=== PATIENT | male | born 1950 | race Two or more races ===

== ENCOUNTER 2025-01-27 11:02 | Emergency (ER) | payer OTHER ==
[~2025-01-27] VITALS: Ht 172.7 cm; Wt 97.5 kg
[2025-01-27] MEDS ORDERED: TYLENOL 120MG120 MG PO (11:23)
[2025-01-27] MEDS ORDERED: AMLODIPINE-OLM1 EAC2 PO (11:24)
[2025-01-27] MEDS ORDERED: TENORMIN50 M1 (11:24)
[2025-01-27] MEDS ORDERED: VASOTEC20 MG PO (11:24)
[2025-01-27] MEDS ORDERED: ELIQUIS5 MG PO (11:25)
[2025-01-27] MEDS ORDERED: UROXATRAL10 MG (11:25)
[2025-01-27] MEDS ORDERED: FAMOtidine 10 MG/ML (4ML VIAL) IV ONE (12:15)
[2025-01-27] MEDS ORDERED: 0.9 % SODIUM CHLORIDE 1,000 ML IV ONE (12:15)
[2025-01-27] MEDS ORDERED: levoFLOXacin IN DEXTROSE 5 % 500MG/100ML PIGGYBAG IV ONE (12:15)
[2025-01-27] MEDS ORDERED: METHYLPREDNISOLONE SOD SUCC 125 MG VIAL IV ONE (12:15)
[2025-01-27 12:39] LABS: BASO % 0.5 % (0.1-1.2); EOS # 0.09 (0.04-0.54); EOS % 0.8 % (0.7-7.0); LYMPH # 1.14 (1.18-3.74); LYMPH % 10.6 % (19.3-53.1); MEAN PLATELET VOLUME 9.20 fl (9.4-12.4); MONO # 0.97 (0.24-0.82); MONO % 9.0 % (4.7-12.5); NEUT # 8.49 (1.56-6.13); NEUT % 78.7 % (34.0-71.1); RED CELL DISTRIBUTION WIDTH 13.2 % (11.6-14.4)
[2025-01-27 12:43] LABS: ERYTHROCYTE SEDIMENTATION RATE 17 mm/hr (0-20)
[2025-01-27 14:52] LABS: ALT/SGPT 31.0 U/L (12-78); AST/SGOT 20.0 U/L (15-37); BILIRUBIN TOTAL 0.76 mg/dL (0.3-1.2); BUN CREA RATIO 18.0 (7.0-25.0); CREATININE SERUM 0.76 mg/dL (0.70-1.30); GFR 99.98; GLOBULINA 3.2 G/DL (2.4-3.5); GLUCOSE FASTING 101.0 mg/dL (65-100); OSMOLALITY SERUM 274.0 MOSM/KG (275-295)
[2025-01-27] MEDS ORDERED: PROBIOTIC1 EAC2 PO (15:40)
[2025-01-27] MEDS ORDERED: PEPCID AC20 MG PO (15:40)
[2025-01-27 15:52] LABS: INR 1.1
== END 2025-01-27 16:17 | disposition home or self-care (01) ==
LOC: ER 11:02 → EDBD 11:02 → ER 11:45
PROVIDERS: General Practice
DX: K04.7 Periapical abscess without sinus (principal); R60.0 Localized edema; Z88.0 Allergy status to penicillin; K21.9 Gastro-esophageal reflux disease without esophagitis; I25.10 Atherosclerotic heart disease of native coronary artery without angina pectoris; I10 Essential (primary) hypertension
CPT/HCPCS: 36415; 70487; 96365; 96366; 99284; J1956; J3490; J7030; Q9965